=== PATIENT | female | born 1985 | race Caucasian/White ===

== ENCOUNTER 2016-11-04 17:59 | Emergency (ER) | payer OTHER ==
--- NOTE | 2016-11-04 18:38 | DIAGNOSTIC IMAGING REPORT ---
PROCEDURE: XR HAND 3 OR 4 VIEWS - RIGHT INDICATION: DOG BITE. NO SKIN BREAKS TECHNIQUE: Four views. COMPARISON: None. FINDINGS: Osseous structures and joint spaces are normal. IMPRESSION: 1. Normal right hand.
--- NOTE | 2016-11-04 18:41 | ED ORDER SUMMARY ---
..... Patient: KAMERON PERALES OrderSheet [facility] VisitID: [id number] [address] [place] [address] 31y, F Registration Date/Time: 11/04/2016 ORDER SHEET Weight: 73.9 kg (stated) Allergies: Latex GENERAL ORDERS: Hand 3 or 4V Right Urgent (18:15 11/04/2016 Cori Gallego) (Ack 18:16 NHouse ER Tech1) (18:20 Adam R.N.) Irrigate Wounds (18:15 11/04/2016 Cori Gallego) (18:21 Adam R.N.) Ice (18:15 11/04/2016 Cori Gallego) (18:21 Adam R.N.) MEDICATION ORDERS: IV FLUIDS: ORDER SHEET NOTES: [Electronically signed by Saul Martines R.N. (18:48 11/04/2016)] [Electronically signed by Crescencio Matos Dr. (09:23 11/10/2016)] [Electronically locked/signed by Saul Martines R.N. (18:48 11/04/2016)]
--- NOTE | 2016-11-04 18:41 | ED NURSING NOTES ---
Clinical Report - Nurses [facility] [address] [place] [address] 11/04/2016 18:00 Patient: KAMERON PERALES TRIAGE Triage time 18:05 Nov 04 2016. Acuity: LEVEL 3. Chief Complaint: DOG BITE. Alert. SHA COMA SCORE: Sha Coma Scale: 15- eyes open spontaneously (4); best verbal response- oriented x 4 (5); best motor response- obeys commands (6). --18:18 Carlos Enrique Buckley R.N. 18:07 11/04/16. BP: 100/69. HR: 84. RR: 16. O2 saturation: 96%. Temp: 98.5 F. Pain level now: 5/10. Additional comments: (R) Kirsten. --18:18 Carlos Enrique Buckley R.N. Weight: 73.9 kg stated. Height/Length: 68 inches Per Patient. BMI: 24.8. --18:08 Carlos Enrique Buckley R.N. Medications Vitamins Oral 1 pill, 3x a day. --18:16 Carlos Enrique Buckley R.N. Allergies Latex. Definite Moderate(rash, SOB) --18:16 Carlos Enrique Buckley R.N. History Arrived by private vehicle. Historian: patient. Accompanied by family. ( Dog bite to (R) Hand. Pt states that it was her neighbors dog fighting with her dog and she was bitten. Apparently the bite did not break the skin.). Location of injuries: right hand. This occurred just prior to arrival. Circumstances: This was an "unprovoked" attack. The appearance and immunization status of the animal are unknown. Animal control has been notified. 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 PAST MEDICAL HX: Tetanus status: up-to-date. Immunizations: status is unknown. Currently . In 2nd trimester. SOCIAL HX: Former smoker, end date 05/2016. No alcohol use or drug use. No infectious disease exposure. ABUSE ASSESSMENT: No report of abuse. FALL RISK ASSESSMENT: Fall risk assessment completed. No fall risk identified. NUTRITIONAL RISK ASSESSMENT: The nutritional risk assessment revealed no deficiencies. FUNCTIONAL ASSESSMENT: Functional assessment: no impairments noted. LEARNING NEEDS ASSESSMENT: The learning needs assessment revealed no barriers. SKIN INTEGRITY ASSESSMENT: Skin integrity risk assessment completed. No skin integrity risk identified. --18:18 Carlos Enrique Buckley R.N. Interventions ID band on patient. To treatment room. --18:18 Carlos Enrique Buckley R.N. PHYSICAL ASSESSMENT Ambulatory to room. GENERAL / NEURO / PSYCH: Alert. Oriented X 4. Appears in pain. HEENT: Head non-tender. RESPIRATORY: Respirations not labored. Breath sounds within normal limits. CVS: Normal heart rate and rhythm. Pulses within normal limits. GI / : Abdomen soft and nontender. EXTREMITIES: Extremities exhibit normal ROM. Neuro-vascular status intact to the extremity. SKIN: Skin is warm and dry. No signs or symptoms of infection. --18:18 Carlos Enrique Buckley R.N. NURSING PROGRESS NOTES Reassurance given. Patient identifiers checked. Call light placed in reach. Side rails up x 1. Bed placed in lowest position. Brakes of bed on. Patient ready for evaluation- chart flagged and ED physician notified. --18:18 Carlos Enrique Buckley R.N. DISPOSITION / DISCHARGE 18:47 11/04/16. Condition at departure: improved. The goals identified in the patient's plan of care were met. No learning barriers present. Discharge instructions provided and reviewed with the patient. Reviewed warnings. Reviewed medication(s). Treatments reviewed. Patient verbalized understanding. Written instructions provided in [place]. The patient was discharged by the physician. She was discharged home and accompanied by family. She left the Emergency Department ambulatory and via private vehicle. Family member driving. FALL RISK ASSESSMENT: Fall risk assessment completed. No fall risk identified. --18:47 Saul Martines R.N. 18:45 11/04/16. BP: 102/68. HR: 72. RR: 16. O2 saturation: 100% on room air. Temp: 98.2 F (oral). --18:47 Saul Martines R.N. 18:47 11/04/16. Departure time: 18:47. --18:47 Saul Martines R.N. Locked/Released at 11/04/2016 18:48 by Saul Martines R.N.
--- NOTE | 2016-11-04 18:41 | ED NURSING NOTES ---
Clinical Report - Nurses [facility] [address] [place] [address] 11/04/2016 18:00 Patient: KAMERON PERALES TRIAGE Triage time 18:05 Nov 04 2016. Acuity: LEVEL 3. Chief Complaint: DOG BITE. Alert. SHA COMA SCORE: Sha Coma Scale: 15- eyes open spontaneously (4); best verbal response- oriented x 4 (5); best motor response- obeys commands (6). --18:18 Carlos Enrique Buckley R.N. 18:07 11/04/16. BP: 100/69. HR: 84. RR: 16. O2 saturation: 96%. Temp: 98.5 F. Pain level now: 5/10. Additional comments: (R) Kirsten. --18:18 Carlos Enrique Buckley R.N. Weight: 73.9 kg stated. Height/Length: 68 inches Per Patient. BMI: 24.8. --18:08 Carlos Enrique Buckley R.N. Medications Vitamins Oral 1 pill, 3x a day. --18:16 Carlos Enrique Buckley R.N. Allergies Latex. Definite Moderate(rash, SOB) --18:16 Carlos Enrique Buckley R.N. History Arrived by private vehicle. Historian: patient. Accompanied by family. ( Dog bite to (R) Hand. Pt states that it was her neighbors dog fighting with her dog and she was bitten. Apparently the bite did not break the skin.). Location of injuries: right hand. This occurred just prior to arrival. Circumstances: This was an "unprovoked" attack. The appearance and immunization status of the animal are unknown. Animal control has been notified. 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 PAST MEDICAL HX: Tetanus status: up-to-date. Immunizations: status is unknown. Currently . In 2nd trimester. SOCIAL HX: Former smoker, end date 05/2016. No alcohol use or drug use. No infectious disease exposure. ABUSE ASSESSMENT: No report of abuse. FALL RISK ASSESSMENT: Fall risk assessment completed. No fall risk identified. NUTRITIONAL RISK ASSESSMENT: The nutritional risk assessment revealed no deficiencies. FUNCTIONAL ASSESSMENT: Functional assessment: no impairments noted. LEARNING NEEDS ASSESSMENT: The learning needs assessment revealed no barriers. SKIN INTEGRITY ASSESSMENT: Skin integrity risk assessment completed. No skin integrity risk identified. --18:18 Carlos Enrique Buckley R.N. Interventions ID band on patient. To treatment room. --18:18 Carlos Enrique Buckley R.N. PHYSICAL ASSESSMENT Ambulatory to room. GENERAL / NEURO / PSYCH: Alert. Oriented X 4. Appears in pain. HEENT: Head non-tender. RESPIRATORY: Respirations not labored. Breath sounds within normal limits. CVS: Normal heart rate and rhythm. Pulses within normal limits. GI / : Abdomen soft and nontender. EXTREMITIES: Extremities exhibit normal ROM. Neuro-vascular status intact to the extremity. SKIN: Skin is warm and dry. No signs or symptoms of infection. --18:18 Carlos Enrique Buckley R.N. NURSING PROGRESS NOTES Reassurance given. Patient identifiers checked. Call light placed in reach. Side rails up x 1. Bed placed in lowest position. Brakes of bed on. Patient ready for evaluation- chart flagged and ED physician notified. --18:18 Carlos Enrique Buckley R.N. DISPOSITION / DISCHARGE 18:47 11/04/16. Condition at departure: improved. The goals identified in the patient's plan of care were met. No learning barriers present. Discharge instructions provided and reviewed with the patient. Reviewed warnings. Reviewed medication(s). Treatments reviewed. Patient verbalized understanding. Written instructions provided in Swazi. The patient was discharged by the physician. She was discharged home and accompanied by family. She left the Emergency Department ambulatory and via private vehicle. Family member driving. FALL RISK ASSESSMENT: Fall risk assessment completed. No fall risk identified. --18:47 Saul Martines R.N. 18:45 11/04/16. BP: 102/68. HR: 72. RR: 16. O2 saturation: 100% on room air. Temp: 98.2 F (oral). --18:47 Saul Martines R.N. 18:47 11/04/16. Departure time: 18:47. --18:47 Saul Martines R.N. Locked/Released at 11/04/2016 18:48 by Saul Martines R.N.
--- NOTE | 2016-11-04 18:41 | ED CLINICAL REPORT ---
Clinical Report - Physicians/Mid Levels [facility] [address] [place] [address] 11/04/2016 18:00 Patient: KAMERON PERALES Arrived- By private vehicle. Historian- patient. HISTORY OF PRESENT ILLNESS Location of injuries- (right hand). Chief Complaint: DOG BITE. The injury occurred just prior to arrival. The animal reportedly appeared well. Animal control has been notified. Occurred at home. (dog was fighting with another dog. tried to separate the two.). The patient has had swelling. 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 REVIEW OF SYSTEMS No vomiting. no skin lacerations. no bleeding. PAST HISTORY See nurses notes. Tetanus immunization status is up-to-date. Medications: Vitamins Oral 1 pill, 3x a day. Allergies: Latex. Definite Moderate(rash, SOB). SOCIAL HISTORY Former smoker. No alcohol use or drug use. Is a local resident. ADDITIONAL NOTES The nursing notes have been reviewed. PHYSICAL EXAM Vital Signs: 11/04/2016 18:07 BP: 100/69. HR: 84. RR: 16. O2 saturation: 96%. Temp: 98.5 F. Pain level now: 5/10. Blood pressure normal. Oxygen saturation normal. Appearance: Alert. Oriented X3. No acute distress. Head: Head normal on inspection and non-tender. Eyes: Eyes normal inspection. ENT: Ears normal on inspection. Nose normal on inspection. Mouth normal on inspection. Neck: Normal inspection. Neck non-tender. Painless ROM. CVS: Heart sounds normal. Pulses normal. Respiratory: Chest normal on inspection. Breath sounds normal. Chest nontender. Abdomen: Normal inspection. Soft and nontender. Gravid uterus (fundus palpated just below the umbilicus. heart tones noted to be normal with a bedside Doppler. heart tones at [id number] bpm). Bowel sounds normal. Back: Normal inspection. No tenderness. ROM normal. Skin: Skin intact. Skin warm and dry. Normal skin color. Normal skin turgor. Extremities: Normal inspection. Pelvis stable. Extremities atraumatic. No lower extremity edema. Neuro: Oriented X 3. No motor deficit. No sensory deficit. Reflexes normal. LABS, X-RAYS, AND EKG Rt Hand X-ray: No fracture. Normal alignment. No bony lesion. Soft tissue swelling. Views: AP, lateral and oblique. The X-rays were independently viewed by me and interpreted contemporaneously by me. PROGRESS AND PROCEDURES Course of Care: The patient is a pleasant 31-year-old female with no pertinent past medical history presented precautions dog bite. The patient does not have any skin breaks at this time. Patient will be evaluated with radiographs of the right hand for any acute osseous Maladies including dislocations or fractures of the right hand. Patient is neurovascularly intact. No evidence of compartment syndrome at this time. We'll monitor closely. Patient is declined offers of pain medication at this time. Patient also reports that she is . Workup does not show any acute osseous maladies. Patient continues to be neurovascularly intact. No evidence of arm syndrome or neurovascular compromise. Patient has full range of motion of the hand. No evidence of complete tendon rupture. While patient follow up with her primary care doctor for further evaluation and monitoring of her hand injury. I discussed the patient workup, diagnosis, home care, follow-up, and return precautions. all questions answered. The patient expressed understanding of these instructions and was agreeable to them. Disposition: Discharged. Condition: good. CLINICAL IMPRESSION 11/04/2016 18:07 BP: 100/69. HR: 84. RR: 16. O2 saturation: 96%. Temp: 98.5 F. Pain level now: 5/10. Blood pressure normal. Oxygen saturation normal. Crush injury to the right hand (from dog bite). INSTRUCTIONS Warnings: GENERAL WARNINGS: Return or contact your physician immediately if your condition worsens or changes unexpectedly, if not improving as expected, or if other problems arise. Specifically return if pain, vomiting, bleeding, breathing difficulty or fever. increased redness, swelling, or other concerns. Your Current Medications: CONTINUE TAKING THE FOLLOWING MEDICATIONS: Vitamins Oral : 1 pill 3x a day. OTC Medications: Acetaminophen (available over the counter): take according to label instructions. Follow-up: Return to the emergency department as needed. Follow up with your doctor in three days. Reason for referral: recheck today's concerns. Summary of care provided to patient via paper. Screening today revealed the patient's blood pressure to be in the normal range. The patient should follow up with a primary care provider for blood pressure management. Understanding of the discharge instructions verbalized by patient. (Electronically signed by Crescencio Matos Dr. 11/10/2016 9:23)
--- NOTE | 2016-11-04 18:41 | ED CLINICAL REPORT ---
Clinical Report - Physicians/Mid Levels [facility] [address] [place] [address] 11/04/2016 18:00 Patient: KAMERON PERALES Arrived- By private vehicle. Historian- patient. HISTORY OF PRESENT ILLNESS Location of injuries- (right hand). Chief Complaint: DOG BITE. The injury occurred just prior to arrival. The animal reportedly appeared well. Animal control has been notified. Occurred at home. (dog was fighting with another dog. tried to separate the two.). The patient has had swelling. 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 REVIEW OF SYSTEMS No vomiting. no skin lacerations. no bleeding. PAST HISTORY See nurses notes. Tetanus immunization status is up-to-date. Medications: Vitamins Oral 1 pill, 3x a day. Allergies: Latex. Definite Moderate(rash, SOB). SOCIAL HISTORY Former smoker. No alcohol use or drug use. Is a local resident. ADDITIONAL NOTES The nursing notes have been reviewed. PHYSICAL EXAM Vital Signs: 11/04/2016 18:07 BP: 100/69. HR: 84. RR: 16. O2 saturation: 96%. Temp: 98.5 F. Pain level now: 5/10. Blood pressure normal. Oxygen saturation normal. Appearance: Alert. Oriented X3. No acute distress. Head: Head normal on inspection and non-tender. Eyes: Eyes normal inspection. ENT: Ears normal on inspection. Nose normal on inspection. Mouth normal on inspection. Neck: Normal inspection. Neck non-tender. Painless ROM. CVS: Heart sounds normal. Pulses normal. Respiratory: Chest normal on inspection. Breath sounds normal. Chest nontender. Abdomen: Normal inspection. Soft and nontender. Gravid uterus (fundus palpated just below the umbilicus. heart tones noted to be normal with a bedside Doppler. heart tones at bpm). Bowel sounds normal. Back: Normal inspection. No tenderness. ROM normal. Skin: Skin intact. Skin warm and dry. Normal skin color. Normal skin turgor. Extremities: Normal inspection. Pelvis stable. Extremities atraumatic. No lower extremity edema. Neuro: Oriented X 3. No motor deficit. No sensory deficit. Reflexes normal. LABS, X-RAYS, AND EKG Rt Hand X-ray: No fracture. Normal alignment. No bony lesion. Soft tissue swelling. Views: AP, lateral and oblique. The X-rays were independently viewed by me and interpreted contemporaneously by me. PROGRESS AND PROCEDURES Course of Care: The patient is a pleasant 31-year-old female with no pertinent past medical history presented precautions dog bite. The patient does not have any skin breaks at this time. Patient will be evaluated with radiographs of the right hand for any acute osseous Maladies including dislocations or fractures of the right hand. Patient is neurovascularly intact. No evidence of compartment syndrome at this time. We'll monitor closely. Patient is declined offers of pain medication at this time. Patient also reports that she is . Workup does not show any acute osseous maladies. Patient continues to be neurovascularly intact. No evidence of arm syndrome or neurovascular compromise. Patient has full range of motion of the hand. No evidence of complete tendon rupture. While patient follow up with her primary care doctor for further evaluation and monitoring of her hand injury. I discussed the patient workup, diagnosis, home care, follow-up, and return precautions. all questions answered. The patient expressed understanding of these instructions and was agreeable to them. Disposition: Discharged. Condition: good. CLINICAL IMPRESSION 11/04/2016 18:07 BP: 100/69. HR: 84. RR: 16. O2 saturation: 96%. Temp: 98.5 F. Pain level now: 5/10. Blood pressure normal. Oxygen saturation normal. Crush injury to the right hand (from dog bite). INSTRUCTIONS Warnings: GENERAL WARNINGS: Return or contact your physician immediately if your condition worsens or changes unexpectedly, if not improving as expected, or if other problems arise. Specifically return if pain, vomiting, bleeding, breathing difficulty or fever. increased redness, swelling, or other concerns. Your Current Medications: CONTINUE TAKING THE FOLLOWING MEDICATIONS: Vitamins Oral : 1 pill 3x a day. OTC Medications: Acetaminophen (available over the counter): take according to label instructions. Follow-up: Return to the emergency department as needed. Follow up with your doctor in three days. Reason for referral: recheck today's concerns. Summary of care provided to patient via paper. Screening today revealed the patient's blood pressure to be in the normal range. The patient should follow up with a primary care provider for blood pressure management. Understanding of the discharge instructions verbalized by patient. (Electronically signed by Crescencio Matos Dr. 11/10/2016 9:23)
--- NOTE | 2016-11-04 18:41 | ED ORDER SUMMARY ---
..... Patient: KAMERON PERALES OrderSheet [facility] VisitID: [id number] [address] [place] [address] 31y, F Registration Date/Time: 11/04/2016 ORDER SHEET Weight: 73.9 kg (stated) Allergies: Latex GENERAL ORDERS: Hand 3 or 4V Right Urgent (18:15 11/04/2016 Cori Gallego) (Ack 18:16 NHouse ER Tech1) (18:20 Adam R.N.) Irrigate Wounds (18:15 11/04/2016 Cori Gallego) (18:21 Adam R.N.) Ice (18:15 11/04/2016 Cori Gallego) (18:21 Adam R.N.) MEDICATION ORDERS: IV FLUIDS: ORDER SHEET NOTES: [Electronically signed by Saul Martines R.N. (18:48 11/04/2016)] [Electronically signed by Crescencio Matos Dr. (09:23 11/10/2016)] [Electronically locked/signed by Saul Martines R.N. (18:48 11/04/2016)]
--- NOTE | 2016-11-10 13:16 | ED DISCHARGE INSTRUCTIONS ---
Patient: KAMERON PERALES General Instructions [facility] VisitID: [id number] [place] [address] 31y, F Registration Date/Time: 11/04/2016 11/04/2016 18:07 BP: 100/69. HR: 84. RR: 16. O2 saturation: 96%. Temp: 98.5 F. Pain level now: 5/10. Blood pressure normal. Oxygen saturation normal. Crush injury to the right hand (from dog bite). INSTRUCTIONS Warnings: GENERAL WARNINGS: Return or contact your physician immediately if your condition worsens or changes unexpectedly, if not improving as expected, or if other problems arise. Specifically return if pain, vomiting, bleeding, breathing difficulty or fever. increased redness, swelling, or other concerns. Your Current Medications: CONTINUE TAKING THE FOLLOWING MEDICATIONS: Vitamins Oral : 1 pill 3x a day. OTC Medications: Acetaminophen (available over the counter): take according to label instructions. Follow-up: Return to the emergency department as needed. Follow up with your doctor in three days. Reason for referral: recheck today's concerns. Summary of care provided to patient via paper. Screening today revealed the patient's blood pressure to be in the normal range. The patient should follow up with a primary care provider for blood pressure management. Understanding of the discharge instructions verbalized by patient. ADDITIONAL INFORMATION Crush Injury: Hand [No Fx] You have a CRUSH INJURY of your HAND. This causes local pain, swelling and sometimes bruising. There are no broken bones. This injury may take from a few days to a few weeks to heal. If the FINGERNAIL has been severely injured, it may fall off in 1-2 weeks. A new one will usually start to grow back within a month. Home Care: Keep your hand elevated to reduce pain and swelling. When sitting or lying down elevate your arm above the level of your heart. You can do this by placing your arm on a pillow that rests on your chest or on a pillow at your side. This is most important during the first 48 hours after injury. Apply an ice pack (ice cubes in a plastic bag, wrapped in a towel) over the injured area for 20 minutes every 1-2 hours the first day for pain relief. Continue this 3-4 times a day until the pain and swelling goes away. You may use acetaminophen (Tylenol) or ibuprofen (Motrin, Advil) to control pain, unless another pain medicine was prescribed. [ NOTE : If you have chronic liver or kidney disease or ever had a stomach ulcer or GI bleeding, talk with your doctor before using these medicines.] Keep the splint/cast dry at all times. Bathe with your splint/cast well out of the water, protected with a large plastic bag, rubber-banded at the top end. If a fiberglass cast or splint gets wet, you can dry it with a hair-dryer. Follow Up with your doctor as advised if you are not starting to improve within the next THREE days. [NOTE: If X-rays were taken, they will be reviewed by a radiologist. You will be notified of any new findings that may affect your care.] Get Prompt Medical Attention if any of the following occur: The plaster cast or splint becomes wet or soft The fiberglass cast or splint remains wet for more than 24 hours Increased tightness or pain under the cast or splint Fingers become swollen, cold, blue, numb or tingly Redness, warmth, swelling, drainage from the wound, or foul odor from a cast or splint Fever of 100.4F(38C) or higher, or as directed by your healthcare provider You have been given the following additional information: Crush Injury, Hand/Finger (Electronically signed by Crescencio Matos Dr. 11/10/2016 9:23)
--- NOTE | 2016-11-10 13:16 | ED MAR SUMMARY ---
..... Medication Administration Record [facility] [address] [id number] Patient: KAMERON PERALES Visit ID: [id number] 31y, F Weight: 73.9 kg Height/Length: 68 in BMI: 24.8 ALLERGIES: Latex
--- NOTE | 2016-11-10 13:16 | ED MAR SUMMARY ---
..... Medication Administration Record [facility] [address] [place], [place] [id number] Patient: KAMERON PERALES Visit ID: [id number] 31y, F Weight: 73.9 kg Height/Length: 68 in BMI: 24.8 ALLERGIES: Latex
--- NOTE | 2016-11-10 13:16 | ED MED RECONCILIATION SUMMARY ---
Patient: KAMEORN PERALES Medication Reconciliation Report [facility] VisitID: [id number] [address] [place] [address] 31y, F Registration Date/Time: 11/04/2016 Weight: 73.9 kg Height/Length: 68 in. BMI: 24.8 ALLERGIES: Latex The patient's Home Medications are listed below: CONTINUE TAKING THE FOLLOWING MEDICATIONS: Vitamins Oral 1 pill, 3x a day The source(s) of the original Home Medication information: Not obtained. The following Medications were given to the patient in the Emergency Department: None. The following Medications were prescribed to the patient: Acetaminophen (available over the counter): take according to label instructions. -- Crescencio Matos Dr.
--- NOTE | 2016-11-10 13:16 | ED MED RECONCILIATION SUMMARY ---
Patient: KAMERON PERALES Medication Reconciliation Report [facility] VisitID: [id number] [address] [place] [address] 31y, F Registration Date/Time: 11/04/2016 Weight: 73.9 kg Height/Length: 68 in. BMI: 24.8 ALLERGIES: Latex The patient's Home Medications are listed below: CONTINUE TAKING THE FOLLOWING MEDICATIONS: Vitamins Oral 1 pill, 3x a day The source(s) of the original Home Medication information: Not obtained. The following Medications were given to the patient in the Emergency Department: None. The following Medications were prescribed to the patient: Acetaminophen (available over the counter): take according to label instructions. -- Crescencio Matos Dr.
== END 2016-11-04 18:47 | disposition home or self-care (01) ==
LOC: ED SRH 17:59
DX: S67.21XA Crushing injury of right hand, initial encounter (principal); W54.0XXA Bitten by dog, initial encounter; Y93.89 Activity, other specified; Y92.009 Unspecified place in unspecified non-institutional (private) residence as the place of occurrence of the external cause; Y99.9 Unspecified external cause status

== ENCOUNTER 2017-02-20 11:45 | Emergency (ER) | payer OTHER ==
--- NOTE | 2017-02-20 14:48 | ED NURSING NOTES ---
Clinical Report - Nurses [facility] [place] [address] 02/20/2017 11:46 Patient: KAMERON PERALES TRIAGE Triage time 11:51 Eduardo 02 2016. Chief Complaint: VAGINAL BLEED and DISCHARGE and (pt delivered on 02/18/2017 began passing vaginally clots right after delivery, pt last night passed a clot arias 4 inches long, 2 inches thick, this morning the size of a silver dollar, [facility]). Alert. No acute distress. SEPSIS SCREEN: Sepsis Screen. Negative (no infection suspected/documented). --12:00 Maria D Holt R.N. 11:51 02/20/17. BP: 123/76. HR: 74. RR: 17. O2 saturation: 98%. Temp: 98.1 F. Pain level now: 0/10. --12:00 Maria D Holt R.N. Weight: 72.5 kg stated. Height/Length: 68 inches Per Patient. BMI: 24.3. --11:57 Maria D Holt R.N. Medications Vitamins Oral 1 pill, 3x a day. --11:55 Maria D Holt R.N. Medication/allergy information source: the patient. --12:00 Maria D Holt R.N. Allergies Latex. Definite Moderate(rash, SOB) --11:55 Maria D Holt R.N. History Arrived by private vehicle. Historian: patient. Accompanied by family. 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 PAST MEDICAL HX: Immunizations: up-to-date. Denies current : delivered on 02/18/2017. SOCIAL HX: Former smoker. No alcohol use or drug use. No infectious disease exposure. ABUSE ASSESSMENT: No report of abuse. SELF HARM ASSESSMENT: A self harm assessment was performed. The patient answered "no" to the question "Do you have thoughts of harming or killing yourself?". FALL RISK ASSESSMENT: Fall risk assessment completed. No fall risk identified. NUTRITIONAL RISK ASSESSMENT: The nutritional risk assessment revealed no deficiencies. FUNCTIONAL ASSESSMENT: Functional assessment: no impairments noted. LEARNING NEEDS ASSESSMENT: The learning needs assessment revealed no barriers. SKIN INTEGRITY ASSESSMENT: Skin integrity risk assessment completed. No skin integrity risk identified. --12:00 Maria D Holt R.N. PROBLEMS: Crush Injury. Hypokalemia. Dehydration. Vomiting. . Bronchitis. Hyperglycemia. Lipoma. LNMP - Last Normal Menstrual Period. PTSD. --11:56 Maria D Holt R.N. ADDITIONAL SURGERIES: Right arm surgery. --11:56 Maria D Holt R.N. Interventions ID band on patient. To treatment room. --12:00 Maria D Holt R.N. PHYSICAL ASSESSMENT Ambulatory to room. Patient gowned. GENERAL / NEURO / PSYCH: Alert. Oriented X 4. Appears in no acute distress. HEENT: Mucous membranes are pink. RESPIRATORY: Respirations not labored. GI / : Moderate vaginal bleeding present, consisting of bright red blood with clots (2 days post delivery). SKIN: Skin is warm and dry. --12:02 Maria D Holt R.N. NURSING PROGRESS NOTES Patient identifiers checked. Call light placed in reach. Side rails up x 1. Bed placed in lowest position. Brakes of bed on. Patient ready for evaluation- chart flagged. Patient waiting for evaluation. --12:02 Maria D Holt R.N. 12:38 02/20/2017 Tylenol (Acetaminophen) PO 650 mg given. Allergies verified and confirmed 5 rights. --12:48 Maria D Holt R.N. 12:38 02/20/2017 Site #1 started via IV in the left antecubital space with an 20g angiocath; one attempt. Blood drawn: rainbow set. Labeled in the presence of the patient and sent to the lab. Saline lock flushed with 10 mL saline. --12:48 Maria D Holt R.N. 12:44 02/20/2017 Started bag #1 1000 mL IV Fluids IV NS (Saline); at 1000 mL/hr via site #1 via dial-a-flow. Allergies verified and confirmed 5 rights. IV patency established. IV site checked: no pain, redness, or swelling. IV flushed thoroughly pre- and post-medication administration. --12:49 Maria D Holt R.N. Pulse oximeter and NIBP monitor placed on patient; monitor alarms on. Patient identifiers checked. Call light placed in reach. Side rails up x 1. Bed placed in lowest position. Brakes of bed on. --12:49 Maria D Holt R.N. ( iv fluids infusing as ordered, pt tending to , speaks long, full clear sentences, denies sob, plan is for US, pt and s/o aware). --13:26 Maria D Holt R.N. Pulse oximeter and NIBP monitor placed on patient; monitor alarms on. Call light placed in reach. Side rails up x 1. Bed placed in lowest position. Brakes of bed on. --13:27 Maria D Holt R.N. Patient waiting for radiology results. ( pt nursing baby, denies sob, s/o at bedside, waiting US report). --13:45 Maria D Holt R.N. 13:46 02/20/17. HR: 72. RR: 17. O2 saturation: 98%. --13:47 Maria D Holt R.N. Call light placed in reach. --13:48 Maria D Holt R.N. 14:42 02/20/2017 IV Fluids IV NS Discontinued: infused. Total amount infused: 1000 mL. IV patency established. IV site checked: no pain, redness, or swelling. IV flushed thoroughly. --14:57 Maria D Holt R.N. 14:47 02/20/2017 Tylenol PO Response: no adverse reaction. --14:57 Maria D Holt R.N. 14:49 02/20/2017 Site #1 removed upon discharge. Bandaid applied. --14:49 Maria D Holt R.N. DISPOSITION / DISCHARGE No learning barriers present. Patient verbalized understanding. Written instructions provided in Guyanese. The patient was discharged by the physician. She was discharged home and accompanied by spouse. She left the Emergency Department ambulatory and via private vehicle. Spouse driving. ( pt provided food upon dc, pt up in room dressed, ambulating without s/sx of sob, given printed info from MD regarding bleeding, pt and s/o verbalize understanding). --14:56 Maria D Holt R.N. 14:49 02/20/17. BP: 119/69. HR: 76. RR: 17. O2 saturation: 99%. Temp: 97.8 F. Pain level now: 12/29. --14:56 Maria D Holt R.N. Locked/Released at 02/20/2017 15:20 by Maria D Holt R.N.
--- NOTE | 2017-02-20 14:48 | ED NURSING NOTES ---
Clinical Report - Nurses [facility] [place] [address] 02/20/2017 11:46 Patient: KAMERON PERALES TRIAGE Triage time 11:51 Eduardo 02 2016. Chief Complaint: VAGINAL BLEED and DISCHARGE and (pt delivered on 02/18/2017 began passing vaginally clots right after delivery, pt last night passed a clot arias 4 inches long, 2 inches thick, this morning the size of a silver dollar, pt called silk screen printer machine at [facility] and was sent to ED). Alert. No acute distress. SEPSIS SCREEN: Sepsis Screen. Negative (no infection suspected/documented). --12:00 Maria D Holt R.N. 11:51 02/20/17. BP: 123/76. HR: 74. RR: 17. O2 saturation: 98%. Temp: 98.1 F. Pain level now: 0/10. --12:00 Maria D Holt R.N. Weight: 72.5 kg stated. Height/Length: 68 inches Per Patient. BMI: 24.3. --11:57 Maria D Holt R.N. Medications Vitamins Oral 1 pill, 3x a day. --11:55 Maria D Holt R.N. Medication/allergy information source: the patient. --12:00 Maria D Holt R.N. Allergies Latex. Definite Moderate(rash, SOB) --11:55 Maria D Holt R.N. History Arrived by private vehicle. Historian: patient. Accompanied by family. 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 PAST MEDICAL HX: Immunizations: up-to-date. Denies current : delivered on 02/18/2017. SOCIAL HX: Former smoker. No alcohol use or drug use. No infectious disease exposure. ABUSE ASSESSMENT: No report of abuse. SELF HARM ASSESSMENT: A self harm assessment was performed. The patient answered "no" to the question "Do you have thoughts of harming or killing yourself?". FALL RISK ASSESSMENT: Fall risk assessment completed. No fall risk identified. NUTRITIONAL RISK ASSESSMENT: The nutritional risk assessment revealed no deficiencies. FUNCTIONAL ASSESSMENT: Functional assessment: no impairments noted. LEARNING NEEDS ASSESSMENT: The learning needs assessment revealed no barriers. SKIN INTEGRITY ASSESSMENT: Skin integrity risk assessment completed. No skin integrity risk identified. --12:00 Maria D Holt R.N. PROBLEMS: Crush Injury. Hypokalemia. Dehydration. Vomiting. . Bronchitis. Hyperglycemia. Lipoma. LNMP - Last Normal Menstrual Period. PTSD. --11:56 Maria D Holt R.N. ADDITIONAL SURGERIES: Right arm surgery. --11:56 Maria D Holt R.N. Interventions ID band on patient. To treatment room. --12:00 Maria D Holt R.N. PHYSICAL ASSESSMENT Ambulatory to room. Patient gowned. GENERAL / NEURO / PSYCH: Alert. Oriented X 4. Appears in no acute distress. HEENT: Mucous membranes are pink. RESPIRATORY: Respirations not labored. GI / : Moderate vaginal bleeding present, consisting of bright red blood with clots (2 days post delivery). SKIN: Skin is warm and dry. --12:02 Maria D Holt R.N. NURSING PROGRESS NOTES Patient identifiers checked. Call light placed in reach. Side rails up x 1. Bed placed in lowest position. Brakes of bed on. Patient ready for evaluation- chart flagged. Patient waiting for evaluation. --12:02 Maria D Holt R.N. 12:38 02/20/2017 Tylenol (Acetaminophen) PO 650 mg given. Allergies verified and confirmed 5 rights. --12:48 Maria D Holt R.N. 12:38 02/20/2017 Site #1 started via IV in the left antecubital space with an 20g angiocath; one attempt. Blood drawn: rainbow set. Labeled in the presence of the patient and sent to the lab. Saline lock flushed with 10 mL saline. --12:48 Maria D Holt R.N. 12:44 02/20/2017 Started bag #1 1000 mL IV Fluids IV NS (Saline); at 1000 mL/hr via site #1 via dial-a-flow. Allergies verified and confirmed 5 rights. IV patency established. IV site checked: no pain, redness, or swelling. IV flushed thoroughly pre- and post-medication administration. --12:49 Maria D Holt R.N. Pulse oximeter and NIBP monitor placed on patient; monitor alarms on. Patient identifiers checked. Call light placed in reach. Side rails up x 1. Bed placed in lowest position. Brakes of bed on. --12:49 Maria D Holt R.N. ( iv fluids infusing as ordered, pt tending to , speaks long, full clear sentences, denies sob, plan is for US, pt and s/o aware). --13:26 Maria D Holt R.N. Pulse oximeter and NIBP monitor placed on patient; monitor alarms on. Call light placed in reach. Side rails up x 1. Bed placed in lowest position. Brakes of bed on. --13:27 Maria D Holt R.N. Patient waiting for radiology results. ( pt nursing baby, denies sob, s/o at bedside, waiting US report). --13:45 Maria D Holt R.N. 13:46 02/20/17. HR: 72. RR: 17. O2 saturation: 98%. --13:47 Maria D Holt R.N. Call light placed in reach. --13:48 Maria D Holt R.N. 14:42 02/20/2017 IV Fluids IV NS Discontinued: infused. Total amount infused: 1000 mL. IV patency established. IV site checked: no pain, redness, or swelling. IV flushed thoroughly. --14:57 Maria D Hotl R.N. 14:47 02/20/2017 Tylenol PO Response: no adverse reaction. --14:57 Maria D Holt R.N. 14:49 02/20/2017 Site #1 removed upon discharge. Bandaid applied. --14:49 Maria D Holt R.N. DISPOSITION / DISCHARGE No learning barriers present. Patient verbalized understanding. Written instructions provided in Malagasy. The patient was discharged by the physician. She was discharged home and accompanied by spouse. She left the Emergency Department ambulatory and via private vehicle. Spouse driving. ( pt provided food upon dc, pt up in room dressed, ambulating without s/sx of sob, given printed info from MD regarding bleeding, pt and s/o verbalize understanding). --14:56 Maria D Holt R.N. 14:49 02/20/17. BP: 119/69. HR: 76. RR: 17. O2 saturation: 99%. Temp: 97.8 F. Pain level now: 12/29. --14:56 Maria D Holt R.N. Locked/Released at 02/20/2017 15:20 by Maria D Holt R.N.
--- NOTE | 2017-02-20 14:48 | ED CLINICAL REPORT ---
Clinical Report - Physicians/Mid Levels [facility] [address] [place] [address] 02/20/2017 11:46 Patient: KAMERON PERALES Time Seen: 1218. Arrived- By private vehicle. Historian- patient. HISTORY OF PRESENT ILLNESS Chief Complaint: VAGINAL BLEEDING. This started after delivery 2 day sago. She has had moderate vaginal bleeding (large clots passing. one roughtly silver dollar size and another about the size of a cell phone.). The bleeding has required use of about 8 pads per day. Is still present (unchanged). It was abrupt in onset and has been constant but is not gone now. She has had a vaginal discharge (no foul smelling discharge). Similar symptoms previously: None. Recent medical care: The patient was seen recently by a health care provider (patient reports she "tore down there"). REVIEW OF SYSTEMS No nausea, fever or skin rash. All systems otherwise negative, except as recorded above. PAST HISTORY See nurses notes. Medications: Vitamins Oral 1 pill, 3x a day. Allergies: Latex. Definite Moderate(rash, SOB). SOCIAL HISTORY Never smoker. No alcohol use or drug use. No recent travel. Is a local resident. FAMILY HISTORY (no family history of bleeding problems). PHYSICAL EXAM Appearance: Alert. Oriented X3. No acute distress. HEENT: Normal external inspection. Eyes: No pale conjunctivae. ENT: Pharynx normal. CVS: Heart sounds normal. Respiratory: No respiratory distress. Breath sounds normal. Chest nontender. Abdomen: Soft and nontender. Bowel sounds normal. No organomegaly. No mass. Back: Normal external inspection. Skin: Skin warm and dry. Normal skin color. No rash. Normal skin turgor. Extremities: Extremities nontender. No pathologic edema. Neuro: Oriented X 3. Mood/affect normal. No motor deficit. No sensory deficit. LABS, X-RAYS, AND EKG Abdominal Sonogram: (PROCEDURE: US COMPLETE PELVIC INDICATION: 2 days . Bleeding. TECHNIQUE: Transabdominal galindo scale and color Doppler sonographic images. COMPARISON: None. FINDINGS: Uterus is enlarged (17.6 x 10.1 x 9.0 cm). There is moderate heterogeneous endometrial thickening (2.3 cm) with cystic changes (versus hemorrhage). Right ovary is not visualized. Left ovary is normal (2.1 cm). No evidence of free fluid. Kidneys are normal. IMPRESSION: 1. Moderate enlargement of the uterus with moderate heterogeneous endometrial thickening. While there is no evidence of vascularity, and these changes may represent endometrial blood, retained products of conception are still a possibility.). The study was independently viewed by me and interpreted by the radiologist. The study was discussed with the radiologist (via phone and pacs). Laboratory Tests: CBC w Diff: (STACI: 02/20/2017 12:44) ( MsgRcvd 02/20/2017 12:53) Final results Test Result Flag Units (Reference) WHITE BLOOD COUNT 13.4 H K/uL (4.5-11.5) RED BLOOD COUNT 3.70 L M/uL (4.00-5.20) HEMOGLOBIN 11.0 L gm/dL (12.0-16.0) HEMATOCRIT 33.0 L % (36.0-46.0) MEAN CELL VOLUME 89 fL (80-100) MEAN CORPUSCULAR HGB 30 pg (26-34) MEAN CORPUSCULAR HGB CONC 33 g/dL (31-37) RED CELL DISTRIBUTION WIDTH 13.5 % (11.6-14.8) PLATELET COUNT 294 K/uL (150-400) NEUTROPHIL % 79.1 H % (50-75) LYMPH % 14.6 L % (25-40) MONO % 3.3 % (3-14) EOSINOPHIL % 2.7 % (0-4) BASOPHIL % 0.3 % (0-2) PT with INR: (STACI: 02/20/2017 12:44) ( MsgRcvd 02/20/2017 12:59) Final results Test Result Flag Units (Reference) INR 1.0 (0.8-1.2) Low Intensity Therapy: INR 1.5-2.0 PT range 18.5-23.1Mod.Intensity Therapy: INR 2.0-3.0 PT range 23.1-31.5High Intensity Therapy: INR 2.5-3.5 PT range 27.4-35.5High Intensity Therapy 2: INR 3.0-4.0 PT range 31.5-39.3 APTT 33 SECONDS (24-34) CMP: (STACI: 02/20/2017 12:44) ( MsgRcvd 02/20/2017 13:07) Final results Test Result Flag Units (Reference) GLUCOSE 109 mg/dL (70-110) BUN 15 mg/dL (7-18) CREATININE 0.5 L mg/dL (0.6-1.3) Estimated GFR >60 mL/min Estimated GFR- >60 mL/min Note: Persistent reduction over 3 months in eGFR<60 mL/min/1.73 m2 defines CKD. Patients with eGFR values>=60 mL/min/1.73 m2 may also have CKD if evidence ofpersistent proteinuria. Additional information may be foundat www.kidney.org. SODIUM 141 mmol/L (136-145) POTASSIUM 3.9 mmol/L (3.5-5.1) CHLORIDE 104 mmol/L (98-107) CARBON DIOXIDE 25 mmol/L (21-32) CALCIUM 8.9 mg/dL (8.5-10.1) TOTAL PROTEIN 6.2 L g/dL (6.4-8.2) ALBUMIN 2.4 L g/dL (3.3-5.0) BILIRUBIN, TOTAL 0.2 mg/dL (0.0-1.0) ALKALINE PHOSPHATASE 98 U/L (46-116) AST (SGOT) 48 H U/L (15-37) ALT (SGPT) 77 U/L (12-78) . PROGRESS AND PROCEDURES Course of Care: the patient is a pleasant 31-year-old female who recently gave with what patient describes as perennial tear. Patient with bleeding noted . Would be concerned this time for hemorrhage. Patient be evaluated with laboratory studies to the thigh for any signs of significant anemia secondary to blood loss. We'll also be valid for any electrolytic abnormalities as a result of the patient's potential metabolic disturbance. Will order ultrasound for evaluation of any intrauterine abnormalities. Vital signs here in the emergency department are unremarkable. Patient is nontoxic. Patient is agreeable to the treatment and plan. The patient's workup was remarkable for hemoglobin and hematocrit of 11.0 and 33.0. Because of the patient's physiologically normal hemoglobin and hematocrit, do not feel patient is having significant blood loss bleeding. Was able to consult COMMERCIAL DIRECTOR in regards to patient's bleeding here in the emergency department. Patient is a stable outpatient candidate and will be instructed to follow-up with her COMMERCIAL DIRECTOR. No signs of infection. Patient did report that she was told her placenta was intact after was delivered. Despite this, there is a small chance of retained products of conception. Because of this, bleeding precautions were explained and patient again was encouraged to follow up with her COMMERCIAL DIRECTOR. I discussed the workup of the patient here in the emergency department including her diagnosiions. All questions have been answered. The patient expressed understanding of these instructions and was agreeable to them. Prior to patient's discharge from the emergency department repeat examination continues to be reassuring. Vital signs remained unremarkable. Consult obtained from OB-HANDLE SANDER OPERATOR. Disposition: Discharged. Condition: good. CLINICAL IMPRESSION Moderate vaginal bleeding. Rh-immunoglobulin (Rhogam) administered. (post-). INSTRUCTIONS Warnings: GENERAL WARNINGS: Return or contact your physician immediately if your condition worsens or changes unexpectedly, if not improving as expected, or if other problems arise. Specifically return if pain, vomiting, bleeding, breathing difficulty or fever. Your Current Medications: CONTINUE TAKING THE FOLLOWING MEDICATIONS: Vitamins Oral : 1 pill 3x a day. OTC Medications: Acetaminophen (available over the counter): take according to label instructions. Follow-up: Return to the emergency department as needed. Follow up with your doctor in three days. Reason for referral: recheck today's concerns. Summary of care provided to patient via paper. Screening today revealed the patient's blood pressure to be in the normal range. The patient should follow up with a primary care provider for blood pressure management. Understanding of the discharge instructions verbalized by patient. (Electronically signed by Crescencio Matos Dr. 02/21/2017 14:04)
--- NOTE | 2017-02-20 14:48 | ED ORDER SUMMARY ---
..... Patient: KAMERON PERALES OrderSheet [facility] VisitID: [id number] [place] [address] 31y, F Registration Date/Time: 02/20/2017 ORDER SHEET Weight: 72.5 kg (stated) Allergies: Latex GENERAL ORDERS: US Pelvic Complete Urgent (12:02/20/2017 Cori Gallego) (Ack 12:23 Skylar) (12:48 KPafelton-Hollis R.N.) CBC w Diff Urgent (12:02/20/2017 Cori Gallego) (Ack 12:23 Skylar) (12:48 KPafelton-Hollis R.N.) CMP Urgent (12:02/20/2017 Cori Gallego) (Ack 12:23 Skylar) (12:48 KPafelton-Vaughnn R.N.) PT with INR Urgent (12:02/20/2017 Cori Gallego) (Ack 12:23 Skylar) (12:48 KPafelton-Hollis R.N.) PTT Urgent (12:02/20/2017 Cori Gallego) (Ack 12:23 Skylar) (12:48 KPafelton-Hollis R.N.) Pulse oximeter (12:02/20/2017 Cori Gallego) (12:48 KPafelton-Vaughnn R.N.) MEDICATION ORDERS: Tylenol PO 650 mg (NOW) (12:02/20/2017 Cori Gallego) (Ack 12:30 KPafelton-Hollis R.N.) (12:48 KPafelton-Hollis R.N.) IV FLUIDS: IV NS : initial bolus 1000 mL (1000 mL/hr), then none - for X1 (NOW) (12:02/20/2017 Cori Gallego) (Ack 12:30 KPafelton-Hollis R.N.) (12:49 KPage-Hollis R.N.) ORDER SHEET NOTES: [Electronically signed by Maria D Holt R.N. (15:20 02/20/2017)] [Electronically signed by Crescencio Matos Dr. (14:04 02/21/2017)] [Electronically locked/signed by Maria D Holt R.N. (15:20 02/20/2017)]
--- NOTE | 2017-02-20 14:48 | ED ORDER SUMMARY ---
..... Patient: KAMERON PERALES OrderSheet [facility] VisitID: [id number] [place] [address] 31y, F Registration Date/Time: 02/20/2017 ORDER SHEET Weight: 72.5 kg (stated) Allergies: Latex GENERAL ORDERS: US Pelvic Complete Urgent (12:02/20/2017 Cori Gallego) (Ack 12:23 Skylar) (12:48 KPafelton-Hollis R.N.) CBC w Diff Urgent (12:02/20/2017 Cori Gallego) (Ack 12:23 Skylar) (12:48 KPafelton-Hollis R.N.) CMP Urgent (12:02/20/2017 Cori Gallego) (Ack 12:23 Skylar) (12:48 KPafelton-Vaughnn R.N.) PT with INR Urgent (12:02/20/2017 Cori Gallego) (Ack 12:23 Skylar) (12:48 KPafelton-Hollis R.N.) PTT Urgent (12:02/20/2017 Cori Gallego) (Ack 12:23 Skylar) (12:48 KPafelton-Hollis R.N.) Pulse oximeter (12:02/20/2017 Cori Gallego) (12:48 KPafelton-Vaughnn R.N.) MEDICATION ORDERS: Tylenol PO 650 mg (NOW) (12:02/20/2017 Cori Gallego) (Ack 12:30 KPafelton-Hollis R.N.) (12:48 KPafelton-Hollis R.N.) IV FLUIDS: IV NS : initial bolus 1000 mL (1000 mL/hr), then none - for X1 (NOW) (12:02/20/2017 Cori Gallego) (Ack 12:30 KPafelton-Hollis R.N.) (12:49 KPage-Hollis R.N.) ORDER SHEET NOTES: [Electronically signed by Maria D Holt R.N. (15:20 02/20/2017)] [Electronically signed by Crescencio Matos Dr. (14:04 02/21/2017)] [Electronically locked/signed by Maria D Holt R.N. (15:20 02/20/2017)]
--- NOTE | 2017-02-20 14:48 | ED CLINICAL REPORT ---
Clinical Report - Physicians/Mid Levels [facility] [address] [place] [address] 02/20/2017 11:46 Patient: KAMERON PERALES Time Seen: 1218. Arrived- By private vehicle. Historian- patient. HISTORY OF PRESENT ILLNESS Chief Complaint: VAGINAL BLEEDING. This started after delivery 2 day sago. She has had moderate vaginal bleeding (large clots passing. one roughtly silver dollar size and another about the size of a cell phone.). The bleeding has required use of about 8 pads per day. Is still present (unchanged). It was abrupt in onset and has been constant but is not gone now. She has had a vaginal discharge (no foul smelling discharge). Similar symptoms previously: None. Recent medical care: The patient was seen recently by a health care provider (patient reports she "tore down there"). REVIEW OF SYSTEMS No nausea, fever or skin rash. All systems otherwise negative, except as recorded above. PAST HISTORY See nurses notes. Medications: Vitamins Oral 1 pill, 3x a day. Allergies: Latex. Definite Moderate(rash, SOB). SOCIAL HISTORY Never smoker. No alcohol use or drug use. No recent travel. Is a local resident. FAMILY HISTORY (no family history of bleeding problems). PHYSICAL EXAM Appearance: Alert. Oriented X3. No acute distress. HEENT: Normal external inspection. Eyes: No pale conjunctivae. ENT: Pharynx normal. CVS: Heart sounds normal. Respiratory: No respiratory distress. Breath sounds normal. Chest nontender. Abdomen: Soft and nontender. Bowel sounds normal. No organomegaly. No mass. Back: Normal external inspection. Skin: Skin warm and dry. Normal skin color. No rash. Normal skin turgor. Extremities: Extremities nontender. No pathologic edema. Neuro: Oriented X 3. Mood/affect normal. No motor deficit. No sensory deficit. LABS, X-RAYS, AND EKG Abdominal Sonogram: (PROCEDURE: US COMPLETE PELVIC INDICATION: 2 days . Bleeding. TECHNIQUE: Transabdominal galindo scale and color Doppler sonographic images. COMPARISON: None. FINDINGS: Uterus is enlarged (17.6 x 10.1 x 9.0 cm). There is moderate heterogeneous endometrial thickening (2.3 cm) with cystic changes (versus hemorrhage). Right ovary is not visualized. Left ovary is normal (2.1 cm). No evidence of free fluid. Kidneys are normal. IMPRESSION: 1. Moderate enlargement of the uterus with moderate heterogeneous endometrial thickening. While there is no evidence of vascularity, and these changes may represent endometrial blood, retained products of conception are still a possibility.). The study was independently viewed by me and interpreted by the radiologist. The study was discussed with the radiologist (via phone and pacs). Laboratory Tests: CBC w Diff: (STACI: 02/20/2017 12:44) ( MsgRcvd 02/20/2017 12:53) Final results Test Result Flag Units (Reference) WHITE BLOOD COUNT 13.4 H K/uL (4.5-11.5) RED BLOOD COUNT 3.70 L M/uL (4.00-5.20) HEMOGLOBIN 11.0 L gm/dL (12.0-16.0) HEMATOCRIT 33.0 L % (36.0-46.0) MEAN CELL VOLUME 89 fL (80-100) MEAN CORPUSCULAR HGB 30 pg (26-34) MEAN CORPUSCULAR HGB CONC 33 g/dL (31-37) RED CELL DISTRIBUTION WIDTH 13.5 % (11.6-14.8) PLATELET COUNT 294 K/uL (150-400) NEUTROPHIL % 79.1 H % (50-75) LYMPH % 14.6 L % (25-40) MONO % 3.3 % (3-14) EOSINOPHIL % 2.7 % (0-4) BASOPHIL % 0.3 % (0-2) PT with INR: (STACI: 02/20/2017 12:44) ( MsgRcvd 02/20/2017 12:59) Final results Test Result Flag Units (Reference) INR 1.0 (0.8-1.2) Low Intensity Therapy: INR 1.5-2.0 PT range 18.5-23.1Mod.Intensity Therapy: INR 2.0-3.0 PT range 23.1-31.5High Intensity Therapy: INR 2.5-3.5 PT range 27.4-35.5High Intensity Therapy 2: INR 3.0-4.0 PT range 31.5-39.3 APTT 33 SECONDS (24-34) CMP: (STACI: 02/20/2017 12:44) ( MsgRcvd 02/20/2017 13:07) Final results Test Result Flag Units (Reference) GLUCOSE 109 mg/dL (70-110) BUN 15 mg/dL (7-18) CREATININE 0.5 L mg/dL (0.6-1.3) Estimated GFR >60 mL/min Estimated GFR- >60 mL/min Note: Persistent reduction over 3 months in eGFR<60 mL/min/1.73 m2 defines CKD. Patients with eGFR values>=60 mL/min/1.73 m2 may also have CKD if evidence ofpersistent proteinuria. Additional information may be foundat www.kidney.org. SODIUM 141 mmol/L (136-145) POTASSIUM 3.9 mmol/L (3.5-5.1) CHLORIDE 104 mmol/L (98-107) CARBON DIOXIDE 25 mmol/L (21-32) CALCIUM 8.9 mg/dL (8.5-10.1) TOTAL PROTEIN 6.2 L g/dL (6.4-8.2) ALBUMIN 2.4 L g/dL (3.3-5.0) BILIRUBIN, TOTAL 0.2 mg/dL (0.0-1.0) ALKALINE PHOSPHATASE 98 U/L (46-116) AST (SGOT) 48 H U/L (15-37) ALT (SGPT) 77 U/L (12-78) . PROGRESS AND PROCEDURES Course of Care: the patient is a pleasant 31-year-old female who recently gave with what patient describes as perennial tear. Patient with bleeding noted . Would be concerned this time for hemorrhage. Patient be evaluated with laboratory studies to the thigh for any signs of significant anemia secondary to blood loss. We'll also be valid for any electrolytic abnormalities as a result of the patient's potential metabolic disturbance. Will order ultrasound for evaluation of any intrauterine abnormalities. Vital signs here in the emergency department are unremarkable. Patient is nontoxic. Patient is agreeable to the treatment and plan. The patient's workup was remarkable for hemoglobin and hematocrit of 11.0 and 33.0. Because of the patient's physiologically normal hemoglobin and hematocrit, do not feel patient is having significant blood loss bleeding. Was able to consult CHILDREN'S NURSERY ASSISTANT in regards to patient's bleeding here in the emergency department. Patient is a stable outpatient candidate and will be instructed to follow-up with her CHILDREN'S NURSERY ASSISTANT. No signs of infection. Patient did report that she was told her placenta was intact after was delivered. Despite this, there is a small chance of retained products of conception. Because of this, bleeding precautions were explained and patient again was encouraged to follow up with her CHILDREN'S NURSERY ASSISTANT. I discussed the workup of the patient here in the emergency department including her diagnosiions. All questions have been answered. The patient expressed understanding of these instructions and was agreeable to them. Prior to patient's discharge from the emergency department repeat examination continues to be reassuring. Vital signs remained unremarkable. Consult obtained from OB-MANAGER PROJECT. Disposition: Discharged. Condition: good. CLINICAL IMPRESSION Moderate vaginal bleeding. Rh-immunoglobulin (Rhogam) administered. (post-). INSTRUCTIONS Warnings: GENERAL WARNINGS: Return or contact your physician immediately if your condition worsens or changes unexpectedly, if not improving as expected, or if other problems arise. Specifically return if pain, vomiting, bleeding, breathing difficulty or fever. Your Current Medications: CONTINUE TAKING THE FOLLOWING MEDICATIONS: Vitamins Oral : 1 pill 3x a day. OTC Medications: Acetaminophen (available over the counter): take according to label instructions. Follow-up: Return to the emergency department as needed. Follow up with your doctor in three days. Reason for referral: recheck today's concerns. Summary of care provided to patient via paper. Screening today revealed the patient's blood pressure to be in the normal range. The patient should follow up with a primary care provider for blood pressure management. Understanding of the discharge instructions verbalized by patient. (Electronically signed by Crescencio Matos Dr. 02/21/2017 14:04)
--- NOTE | 2017-02-20 16:43 | DIAGNOSTIC IMAGING REPORT ---
PROCEDURE: US COMPLETE PELVIC INDICATION: 2 days . Bleeding. TECHNIQUE: Transabdominal galindo scale and color Doppler sonographic images. COMPARISON: None. FINDINGS: Uterus is enlarged (17.6 x 10.1 x 9.0 cm). There is moderate heterogeneous endometrial thickening (2.3 cm) with cystic changes (versus hemorrhage). Right ovary is not visualized. Left ovary is normal (2.1 cm). No evidence of free fluid. Kidneys are normal. IMPRESSION: 1. Moderate enlargement of the uterus with moderate heterogeneous endometrial thickening. While there is no evidence of vascularity, and these changes may represent endometrial blood, retained products of conception are still a possibility. 2. Findings discussed with Dr. Matos.
--- NOTE | 2017-02-21 14:07 | ED DISCHARGE INSTRUCTIONS ---
Patient: KAMERON PERALES General Instructions [facility] VisitID: [id number] [place] [address] 31y, F Registration Date/Time: 02/20/2017 Moderate vaginal bleeding. Rh-immunoglobulin (Rhogam) administered. (post-). INSTRUCTIONS Warnings: GENERAL WARNINGS: Return or contact your physician immediately if your condition worsens or changes unexpectedly, if not improving as expected, or if other problems arise. Specifically return if pain, vomiting, bleeding, breathing difficulty or fever. Your Current Medications: CONTINUE TAKING THE FOLLOWING MEDICATIONS: Vitamins Oral : 1 pill 3x a day. OTC Medications: Acetaminophen (available over the counter): take according to label instructions. Follow-up: Return to the emergency department as needed. Follow up with your doctor in three days. Reason for referral: recheck today's concerns. Summary of care provided to patient via paper. Screening today revealed the patient's blood pressure to be in the normal range. The patient should follow up with a primary care provider for blood pressure management. Understanding of the discharge instructions verbalized by patient. ADDITIONAL INFORMATION Irregular Vaginal Bleeding This is a condition in which bleeding occurs at unexpected times of the month. The bleeding may be heavier or air pollution inspector than usual. Heavy bleeding may lead to anemia. If severe enough, anemia may cause you to look pale and feel weak or fatigued. You might have shortness of breath even with little exertion. The female hormones produced in your body every month may be out of balance. This imbalance leads to bleeding. Causes could include an ovarian cyst, emotional stress, pelvic infection. Failure to ovulate during your last cycle may also cause this problem. Home Care: If bleeding is heavy, rest and avoid heavy exertion. You may use acetaminophen (Tylenol) or ibuprofen (Motrin, Advil) to control pain, unless another pain medicine was prescribed. [NOTE: If you have chronic liver or kidney disease or ever had a stomach ulcer or GI bleeding, talk with your doctor before using these medicines.] Iron supplements may be prescribed for anemia. It takes about 4-6 weeks for the iron to correct the anemia. Take the medicine as directed. See your doctor for a repeat blood test after you finish the iron treatment. If hormones were prescribed to control your bleeding, take them exactly as directed. If you were prescribed a medicine called Provera (medroxyprogesterone), the bleeding should stop while you are taking it. Another period will start a few days after you finish the medicine. Follow Up with your doctor, or as advised, within the next 1-2 days if heavy bleeding continues. Otherwise, follow up within the next 1-2 weeks. Get Prompt Medical Attention if any of the following occur: Bleeding becomes heavy (soaking one pad an hour for three hours) Fever of 100.4F (38C) or higher, or as directed by your healthcare provider Increase in abdominal pain Weakness, dizziness or fainting You have been given the following additional information: Dysfunctional Uterine Bleeding (Electronically signed by Crescencio Matos Dr. 02/21/2017 14:04)
--- NOTE | 2017-02-21 14:07 | ED MAR SUMMARY ---
..... Medication Administration Record [facility] [address] [place] [address] Patient: KAMERON PERALES Visit ID: [id number] 31y, F Weight: 72.5 kg Height/Length: 68 in BMI: 24.3 ALLERGIES: Latex Given 12:38 02/20/2017 Maria D Holt RThelma Medication Administered: TYLENOL [PO] (ACETAMINOPHEN), Dose: 650 mg PO. Medication Ordered: Tylenol PO 650 mg (NOW). Start 12:44 02/20/2017 Maria D Holt, RHunterN., Stop 14:42 02/20/2017 Maria D Holt RHunterN. Medication Administered: IV NS (SALINE), Dose: IV Fluids, Rate: 1000 mL/hr, Dispensed: 1000 mL bag, Site: #1 left . Medication Ordered: IV NS : initial bolus 1000 mL (1000 mL/hr), then none - for X1 (NOW).
--- NOTE | 2017-02-21 14:07 | ED MAR SUMMARY ---
..... Medication Administration Record [facility] [address] [place] [address] Patient: KAMERON PERALES Visit ID: [id number] 31y, F Weight: 72.5 kg Height/Length: 68 in BMI: 24.3 ALLERGIES: Latex Given 12:38 02/20/2017 Maria D Holt RThelma Medication Administered: TYLENOL [PO] (ACETAMINOPHEN), Dose: 650 mg PO. Medication Ordered: Tylenol PO 650 mg (NOW). Start 12:44 02/20/2017 Maria D Holt, RHunterN., Stop 14:42 02/20/2017 Maria D Holt RHunterN. Medication Administered: IV NS (SALINE), Dose: IV Fluids, Rate: 1000 mL/hr, Dispensed: 1000 mL bag, Site: #1 left . Medication Ordered: IV NS : initial bolus 1000 mL (1000 mL/hr), then none - for X1 (NOW).
--- NOTE | 2017-02-21 14:07 | ED MED RECONCILIATION SUMMARY ---
Patient: KAMERON PERALES Medication Reconciliation Report [facility] VisitID: [id number] [address] [place] [address] 31y, F Registration Date/Time: 02/20/2017 Weight: 72.5 kg Height/Length: 68 in. BMI: 24.3 ALLERGIES: Latex The patient's Home Medications are listed below: CONTINUE TAKING THE FOLLOWING MEDICATIONS: Vitamins Oral 1 pill, 3x a day The source(s) of the original Home Medication information: patient The following Medications were given to the patient in the Emergency Department: Tylenol [PO] PO 650 mg, administered: 02/20/2017 12:38:00 PM IV NS IV Fluids bolus 0, then 1000 mL/hr, administered: 02/20/2017 12:44:00 PM The following Medications were prescribed to the patient: Acetaminophen (available over the counter): take according to label instructions. -- Crescencio Matos Dr.
--- NOTE | 2017-02-21 14:07 | ED DISCHARGE INSTRUCTIONS ---
Patient: KAMERON PERALES General Instructions [facility] VisitID: [id number] [place] [address] 31y, F Registration Date/Time: 02/20/2017 Moderate vaginal bleeding. Rh-immunoglobulin (Rhogam) administered. (post-). INSTRUCTIONS Warnings: GENERAL WARNINGS: Return or contact your physician immediately if your condition worsens or changes unexpectedly, if not improving as expected, or if other problems arise. Specifically return if pain, vomiting, bleeding, breathing difficulty or fever. Your Current Medications: CONTINUE TAKING THE FOLLOWING MEDICATIONS: Vitamins Oral : 1 pill 3x a day. OTC Medications: Acetaminophen (available over the counter): take according to label instructions. Follow-up: Return to the emergency department as needed. Follow up with your doctor in three days. Reason for referral: recheck today's concerns. Summary of care provided to patient via paper. Screening today revealed the patient's blood pressure to be in the normal range. The patient should follow up with a primary care provider for blood pressure management. Understanding of the discharge instructions verbalized by patient. ADDITIONAL INFORMATION Irregular Vaginal Bleeding This is a condition in which bleeding occurs at unexpected times of the month. The bleeding may be heavier or counter supervisor than usual. Heavy bleeding may lead to anemia. If severe enough, anemia may cause you to look pale and feel weak or fatigued. You might have shortness of breath even with little exertion. The female hormones produced in your body every month may be out of balance. This imbalance leads to bleeding. Causes could include an ovarian cyst, emotional stress, pelvic infection. Failure to ovulate during your last cycle may also cause this problem. Home Care: If bleeding is heavy, rest and avoid heavy exertion. You may use acetaminophen (Tylenol) or ibuprofen (Motrin, Advil) to control pain, unless another pain medicine was prescribed. [NOTE: If you have chronic liver or kidney disease or ever had a stomach ulcer or GI bleeding, talk with your doctor before using these medicines.] Iron supplements may be prescribed for anemia. It takes about 4-6 weeks for the iron to correct the anemia. Take the medicine as directed. See your doctor for a repeat blood test after you finish the iron treatment. If hormones were prescribed to control your bleeding, take them exactly as directed. If you were prescribed a medicine called Provera (medroxyprogesterone), the bleeding should stop while you are taking it. Another period will start a few days after you finish the medicine. Follow Up with your doctor, or as advised, within the next 1-2 days if heavy bleeding continues. Otherwise, follow up within the next 1-2 weeks. Get Prompt Medical Attention if any of the following occur: Bleeding becomes heavy (soaking one pad an hour for three hours) Fever of 100.4F (38C) or higher, or as directed by your healthcare provider Increase in abdominal pain Weakness, dizziness or fainting You have been given the following additional information: Dysfunctional Uterine Bleeding (Electronically signed by Crescencio Matos Dr. 02/21/2017 14:04)
--- NOTE | 2017-02-21 14:07 | ED MED RECONCILIATION SUMMARY ---
Patient: KAMERON PERALES Medication Reconciliation Report [facility] VisitID: [id number] [address] [place] [address] 31y, F Registration Date/Time: 02/20/2017 Weight: 72.5 kg Height/Length: 68 in. BMI: 24.3 ALLERGIES: Latex The patient's Home Medications are listed below: CONTINUE TAKING THE FOLLOWING MEDICATIONS: Vitamins Oral 1 pill, 3x a day The source(s) of the original Home Medication information: patient The following Medications were given to the patient in the Emergency Department: Tylenol [PO] PO 650 mg, administered: 02/20/2017 12:38:00 PM IV NS IV Fluids bolus 0, then 1000 mL/hr, administered: 02/20/2017 12:44:00 PM The following Medications were prescribed to the patient: Acetaminophen (available over the counter): take according to label instructions. -- Crescencio Matos Dr.
== END 2017-02-20 14:54 | disposition home or self-care (01) ==
LOC: ED SRH 11:45
DX: O72.1 Other immediate postpartum hemorrhage (principal); Z91.040 Latex allergy status
CPT/HCPCS: 90100; 94001; 94060; 95059